=== PATIENT | male | born 1960 | race Caucasian/White ===

== ENCOUNTER 2017-10-18 09:08 | Emergency (ER) | payer SELFPAY ==
[~2017-10-18] VITALS: Ht 167.6 cm; Wt 70.0 kg
[~2017-10-18 09:08] MED LIST: CODE30TA PO; LEVO100T75 PO
[2017-10-18 09:11] VITALS: BP 153/74; PULSE 65; RESP 16; TEMP 98.3; O2SAT 100
[2017-10-18] MEDS ORDERED: traMADol HCL 50 MG TAB PO ONE (09:30)
[2017-10-18] MEDS ORDERED: IBUP1TAB7 PO (09:39)
[2017-10-18] MEDS ORDERED: PENI500T PO (09:39)
[2017-10-18] MEDS ORDERED: MAGICPED SWISH-SPIT (09:43)
--- NOTE | 2017-10-18 09:44 | PD ---
HPI Chief Complaint: Oral / Dental Pain or Problem Time Seen by Provider: 09:18 Travel History International Travel<30 days: No Contact w/Intl Traveler<30days: No Traveled to known affect area: No History of Present Illness HPI 57-year-old male presents emergency department for evaluation of right upper tooth pain that started last night. Says he is in excruciating pain would like some pain medication. No palliative or provocative factors. Patient denies any fevers or chills. Says the upper right tooth and cheek appear swollen to him. Says he has pain to his jaw and into his forehead as well. Says he does have a history of poor dentition but has not been previously evaluated for this. Patient says he does not have a primary care physician currently which is the reason he is here for evaluation. Says he has been to pain management previously for his shoulder and neck but unfortunately does not go to pain management now. He has no other complaints today. PFSH Past Medical History Diminished Hearing: No Diverticulitis: Yes Musculoskeletal: Yes (CHRONIC SHOULDER PAIN) Thyroid Disease: Yes Past Surgical History Surgical History: No Previous Surgery Social History Alcohol Use: Yes (SOC) Tobacco Use: No Substance Use: No Allergies-Medications (Allergen,Severity, Reaction): Coded Allergies: No Known Allergies (Unverified Adverse Reaction, Unknown, 10/18/17) Reported Meds & Prescriptions Reported Meds & Active Scripts Active Magic Mouthwash Pediatric/Adult Liq (Lidocaine/Diphenhydr/Alum/Mg/Simeth) 60 Ml Susp 5 Ml SWISH-SPIT ACHS 7 Days Each 5mL contains: Diphenydramine 4.5mg, Viscous Lidocaine 2% 10mg, Maalox Advanced Regular Strength 2.7ml Ibuprofen 800 Mg Tab 800 Mg PO Q8H PRN 5 Days Penicillin V Potassium 500 Mg Tab 500 Mg PO Q8H 7 Days Review of Systems Except as stated in HPI: all other systems reviewed are Neg Physical Exam Narrative GENERAL: Well-nourished, well-developed patient. SKIN: Focused skin assessment warm/dry. HEAD: Normocephalic. EYES: No scleral icterus. No injection or drainage. NECK: Supple, trachea midline. No JVD or lymphadenopathy. Right upper gingiva-tender to palpation on the lingual > buccal aspect without fluctuance. poor dentition. CARDIOVASCULAR: Regular rate and rhythm without murmurs, gallops, or rubs. RESPIRATORY: Breath sounds equal bilaterally. No accessory muscle use. GASTROINTESTINAL: Abdomen soft, non-tender, nondistended. MUSCULOSKELETAL: No cyanosis, or edema. BACK: Nontender without obvious deformity. No CVA tenderness. Data Data Last Documented VS Vital Signs Date Time Temp Pulse Resp B/P (MAP) Pulse Ox O2 Delivery O2 Flow Rate FiO2 10/18/17 09:11 98.3 65 16 153/74 (100) 100 Orders Orders Tramadol (Ultram) (10/18/17 09:30) Ketorolac Inj (Toradol Inj) (10/18/17 09:45) Ed Discharge Order (10/18/17 09:44) [facility] Medical Decision Making Medical Screen Exam Complete: Yes Emergency Medical Condition: Yes Differential Diagnosis Dental infection, tooth abscess, cellulitis Narrative Course 57-year-old male presents emergency department for evaluation of right upper tooth pain that started last night. Patient request pain medication today. Vital signs are stable. Physical exam findings consistent with a dental infection. He does have tenderness to palpation of the gingiva. There is no fluctuance or exudate present. He does have poor dentition. Tramadol and Toradol administered emergency department today. Patient will be discharged with ibuprofen 800 mg 3 times daily for pain. Patient was also received penicillin VK for possible infectious process. Magic mouth rinse. He is advised to follow-up with [facility] and dentist for further evaluation and treatment. Says he feels much better after medication today. Diagnosis Primary Impression: Dental infection Referrals: [facility] Dentist Additional Instructions: Follow-up with the dentist as soon as possible. Take all medications as prescribed. Scripts Mbcmamkvszbhibi-Btahxokfv-Slg-Alum-Simeth Liq (Magic Mouthwash Pediatric/Adult Liq) 60 Ml Susp 5 ML SWISH-SPIT ACHS for Mouth sores for 7 Days, #60 ML 0 Refills Each 5mL contains: Diphenydramine 4.5mg, Viscous Lidocaine 2% 10mg, Maalox Advanced Regular Strength 2.7ml Prov: Jon Schuler MD 10/18/17 Ibuprofen (Ibuprofen) 800 Mg Tab 800 MG PO Q8H Y for Pain/Inflammation for 5 Days, #15 TAB 0 Refills Prov: Jon Schuler MD 10/18/17 Penicillin V Potassium (Penicillin V Potassium) 500 Mg Tab 500 MG PO Q8H for Infection for 7 Days, #21 TAB 0 Refills Prov: Jon Schuler MD 10/18/17 Disposition: 01 DISCHARGE HOME Condition: Stable Nay Villavicencio Oct 18, 2017 09:44
[2017-10-18] MEDS ORDERED: KETOROLAC TROMETHAMINE 60 MG/2 ML (IM) VIAL IM ONE (09:45)
== END 2017-10-18 10:03 | disposition home or self-care (01) ==
LOC: PHEFT 09:08
DX: K04.7 Periapical abscess without sinus (principal); E07.9 Disorder of thyroid, unspecified; G89.29 Other chronic pain; M25.519 Pain in unspecified shoulder
CPT/HCPCS: 96372; 99283; J1885